=== PATIENT | male | born 1960 | race Caucasian/White ===

== ENCOUNTER 2016-07-21 17:47 | Emergency (ER) | payer BC ==
[~2016-07-21] VITALS: Ht 177.8 cm; Wt 71.6 kg
[~2016-07-21 17:47] MED LIST: COUMADIN,JANTOVE4 MG PO; COUMADIN,JANTOVE5 MG PO; COUMADIN4 MG PO; COUMADIN5 MG PO; LOVENOX80 MG/0.8 SC; ULTRACET1 TABLET PO
[2016-07-21] MEDS ORDERED: BACTRIM,SEPT1 TABLET PO (19:33)
[2016-07-21 20:26] VITALS: BP 139/72
== END 2016-07-21 20:27 | disposition home or self-care (01) ==
LOC: EME 17:47
DX: I87.2 Venous insufficiency (chronic) (peripheral) (principal); L97.329 Non-pressure chronic ulcer of left ankle with unspecified severity; Z86.718 Personal history of other venous thrombosis and embolism; Z79.01 Long term (current) use of anticoagulants; F17.200 Nicotine dependence, unspecified, uncomplicated
CPT/HCPCS: 87070; 87075; 87205; 99281; 99283

== ENCOUNTER → 2017-01-07 | Outpatient (CLI) | payer BC ==
[~2017-01-07] MED LIST changes: +BACTRIM,SEPT1 TABLET PO
== END | disposition home or self-care (01) ==
LOC: CDC 15:33
DX: R94.31 Abnormal electrocardiogram [ECG] [EKG] (principal)
CPT/HCPCS: 93000

== ENCOUNTER 2017-05-31 09:55 | Emergency (ER) | payer BC ==
[~2017-05-31] VITALS: Ht 177.8 cm; Wt 70.5 kg
[2017-05-31 12:52] LABS: HEMATOCRIT 44.4 % (38.0-50.0); MCH 29.1 PG (29.0-34.0); MCHC 33.3 G/DL (30.0-36.0); MCV 87.2 FL (86-99); MEAN PLAT.VOLUME 10.1 uM^3 (9.0-12.4); PLATELET COUNT 165 K/uL (156-360); RBC DIS.WIDTH-CV 13.2 % (11.8-14.6); RBC DIS.WIDTH-SD 42.3 % (39-53); RED BLOOD COUNT 5.09 M/uL (4.00-5.50); WHITE BLOOD COUNT 9.6 K/uL (4.1-10.2)
[2017-05-31 12:59] LABS: INTER. NORMALIZED RATIO 2.6; PROTHROMBIN TIME 29.7 SEC (10.2-12.9)
[2017-05-31 13:03] LABS: CHLORIDE 107 mEq/L (99-109); POTASSIUM 4.1 mEq/L (3.7-5.4); SODIUM 141 mEq/L (136-147)
[2017-05-31 13:04] LABS: GLUCOSE 145 mg/dL (70-99)
[2017-05-31 13:06] LABS: ANION GAP 10 MEQ/L (2-14)
[2017-05-31 13:08] LABS: GFR ESTIMATE (CALCULATED) > 59 mL/min/ (58.99-99999)
[2017-05-31 13:09] LABS: UREA NITROGEN (BUN) 12 mg/dL (9-23)
[2017-05-31] MEDS ORDERED: CLOPIDOGREL75 MG PO (13:26)
[2017-05-31 13:27] VITALS: BP 131/72
== END 2017-05-31 13:26 | disposition home or self-care (01) ==
LOC: EME 09:55
PROVIDERS: Nurse Practitioner Family
PROC: 0HQGXZZ Repair Left Hand Skin, External Approach (ICD-10-PCS; principal; 2017-05-31)
DX: S61.211A Laceration without foreign body of left index finger without damage to nail, initial encounter (principal); W27.8XXA Contact with other nonpowered hand tool, initial encounter; Y99.0 Civilian activity done for income or pay; Z79.01 Long term (current) use of anticoagulants; Z79.02 Long term (current) use of antithrombotics/antiplatelets; F17.200 Nicotine dependence, unspecified, uncomplicated; Z95.5 Presence of coronary angioplasty implant and graft; Z88.1 Allergy status to other antibiotic agents; Z91.040 Latex allergy status; Z95.828 Presence of other vascular implants and grafts
CPT/HCPCS: 80048; 85027; 85610; 99281; 99284